=== PATIENT | female | born 1995 | race Caucasian/White ===

== ENCOUNTER 2020-05-31 20:03 | Inpatient (IN) ==
[2020-05-31] MEDS ORDERED: ONDANSETRON 4 MG/2 ML VIAL IV PRN (20:46)
[2020-05-31] MEDS ORDERED: LACTATED RINGERS 250 ML IV ONE (20:46)
[2020-05-31] MEDS ORDERED: LACTATED RINGERS 500 ML IV PRN (20:46)
[2020-05-31] MEDS ORDERED: MEPERIDINE 50 MG/1 ML VIAL IV PRN (20:46)
[2020-05-31 21:03] LABS: Basophils # 0.1 10*3/uL (0.0-0.2); Basophils % 0.3 % (0.0-0.8); Eosinophils # 0.2 10*3/uL (0.0-0.87); Eosinophils % 0.8 % (0.00-10.9); Hematocrit 36.7 VOL% (35.7-47.0); Immature Granulocytes % 0.6 %; Immature Granulocytes Absolute 0.12 #; Lymphocytes # 3.3 10*3/uL (1.4-4.0); Lymphocytes % 17.8 % (21.3-54.2); Mean Corpuscular HGB Conc 32.7 GM/DL (32-36); Mean Corpuscular Volume 91.5 FL (87-102); Mean Platelet Volume 10.6 FL (9.6-12.0); Monocytes % 5.7 % (1.7-12.7); Neutrophils % 74.8 % (38.7-73.9); Platelet Count 298 T/CUMM (130-400); Red Blood Count 4.01 MC/CUMM (3.8-5.5); Red Cell Distribution Width 14.7 % (9.3-17.3); White Blood Count 18.5 T/CUMM (4-12)
[2020-05-31 21:17] LABS: Bacteria,Urine Occasional /HPF (Few); Bilirubin,Urine Negative (Negative); Blood, Urine Negative (Negative); Calcium Oxalate Crystals,Urine Occasional /HPF (Few); Glucose,Urine (UA) Negative (Negative); Ketones,Urine Negative (Negative); Mucus,Urine Moderate /LPF (Occasional); Nitrite,Urine Negative (Negative); Protein,Urine 100 MG/DL; RBC,Urine 2 /HPF (0-4); Squamous Epithelial Cell,Urine Occasional /HPF (0-10); Urine Appearance CLEAR (Clear); Urine Color Yellow (Yellow); Urine Specific Gravity 1.029 (1.001-1.035); Urine Urobilinogen < 2.0 EU/DL (0.2-1.0); WBC,Urine 1 /HPF (0-6)
[2020-06-01] MEDS ORDERED: TERBUTALINE 1 MG/1 ML VIAL ONE (06:44)
[2020-06-01] MEDS ORDERED: TERBUTALINE 1 MG/1 ML VIAL SUBCUT ONE ×2 (06:55→08:08)
[2020-06-01] MEDS ORDERED: FAMOTIDINE 20 MG/2 ML VIAL IV ONE ×2 (07:18→07:20)
[2020-06-01] MEDS ORDERED: CITRIC ACID/SODIUM CITRATE 30 ML UDCUP PO ONE (07:19)
[2020-06-01] MEDS ORDERED: CITRIC ACID/SODIUM CITRATE 30 ML UDCUP ONE (07:20)
[2020-06-01] MEDS ORDERED: ceFAZolin 3,000 MG in SYRINGE 1 EACH IV ONE (08:00)
[2020-06-01] MEDS ORDERED: miSOPROStoL 200 MCG TABLET ONE (08:07)
[2020-06-01] MEDS ORDERED: OXYTOCIN/LR 20 UNIT/1,000 ML BAG IV ONE ×2 (08:07→09:43)
[2020-06-01] MEDS ORDERED: SODIUM CHLORIDE 0.9% 0 ML IV ONE (08:07)
[2020-06-01] MEDS ORDERED: CARBOPROST TROMETHAMINE 250 MCG/ML AMP IM ONE (08:07)
[2020-06-01] MEDS ORDERED: METHYLERGONOVINE 0.2 MG/1 ML AMP ONE (08:07)
[2020-06-01] MEDS ORDERED: TRANEXAMIC ACID 1,000 MG/10 ML VIAL ONE (08:07)
[2020-06-01] MEDS ORDERED: BUPIVACAINE SPINAL 0.75% 2 ML AMP SPINAL ONE (08:38)
[2020-06-01] MEDS ORDERED: MORPHINE 10 MG/10 ML VIAL ONE (08:38)
[2020-06-01] MEDS ORDERED: ONDANSETRON 4 MG/2 ML VIAL ONE (09:10)
[2020-06-01] MEDS ORDERED: diphenhydrAMINE 50 MG/1 ML VIAL ONE (09:14)
[2020-06-01] MEDS ORDERED: miSOPROStoL 200 MCG TABLET VAG ONE (09:17)
[2020-06-01] MEDS ORDERED: ROPIVACAINE 0.5% 30 ML VIAL ONE ×2 (09:20)
[2020-06-01] MEDS ORDERED: DEXAMETHASONE 4 MG/1 ML VIAL ONE ×2 (09:20)
[2020-06-01 09:25] LABS: Cord Arterial Blood HCO3 18.1 MMOL/L
[2020-06-01 09:28] LABS: Cord Venous Blood HCO3 19.6 MMOL/L; Cord Venous Blood PCO2 55.9 MMHG
[2020-06-01 09:29] LABS: Cord Venous Blood PO2 13.5
[2020-06-01 09:37] LABS: Glucose,Urine (UA) Negative (Negative); Ketones,Urine Negative (Negative); Nitrite,Urine Negative (Negative); Protein,Urine 1+ MG/DL; Urine Appearance Clear (Clear); Urine Color Amber (Yellow); Urine Specific Gravity 1.025 (1.001-1.035)
[2020-06-01 09:38] LABS: Bacteria,Urine Rare /HPF (Few); Bilirubin,Urine Negative (Negative); Blood, Urine Negative (Negative); Mucus,Urine Trace /LPF (Occasional); RBC,Urine Rare /HPF (0-4); Urine Urobilinogen < 2.0 EU/DL (0.2-1.0); WBC,Urine Rare /HPF (0-6)
[2020-06-01] MEDS ORDERED: LANOLIN 50% CREAM 0.3 OZ TUBE TOP PRN (09:43)
[2020-06-01] MEDS ORDERED: ONDANSETRON 4 MG/2 ML VIAL IV PRN (09:43)
[2020-06-01] MEDS ORDERED: BENZOCAINE 20%/MENTHOL 0.5% SPRAY 56 GM CAN TOP PRN (09:43)
[2020-06-01] MEDS ORDERED: MEASLES/MUMPS/RUBELLA VACCINE 0.5 ML VIAL SUBCUT ONE (09:43)
[2020-06-01] MEDS ORDERED: WITCH HAZEL PADS 100/JAR TOP PRN (09:43)
[2020-06-01] MEDS ORDERED: RHO(D) IMMUNE GLOBULIN 300 MCG SYRINGE IM ONE (09:43)
[2020-06-01] MEDS ORDERED: DIPH/TET/ACEL PERT BOOSTER VACCINE 0.5 ML VIAL IM ONE (09:43)
[2020-06-01] MEDS ORDERED: oxyCODONE/ACETAMINOPHEN 5-325 MG TABLET PO PRN ×2 (09:43)
[2020-06-01] MEDS ORDERED: BISACODYL 10 MG SUPP RECTAL PRN (09:43)
[2020-06-01] MEDS ORDERED: ACETAMINOPHEN 325 MG TABLET PO PRN (09:43)
[2020-06-01] MEDS ORDERED: IBUPROFEN 800 MG TABLET PO PRN (09:43)
[2020-06-01] MEDS ORDERED: HYDROCORTISONE 2.5% RECTAL CREAM 30 GM TUBE TOP PRN (09:43)
[2020-06-01] MEDS: LABETALOL 100 MG TABLET PO SCH ×2 (10:14→22:08)
[2020-06-01] MEDS: diphenhydrAMINE 50 MG/1 ML VIAL IV PRN ×2 (15:02→22:08)
[2020-06-01] MEDS: ceFAZolin 2,000 MG in PREMIX 1 EACH IV SCH (16:47)
[2020-06-01] MEDS: DOCUSATE SODIUM 100 MG CAPSULE PO SCH (22:02)
[2020-06-01] MEDS ORDERED: LACTATED RINGERS 1,000 ML IV SCH (23:00)
[2020-06-02] MEDS: ceFAZolin 2,000 MG in PREMIX 1 EACH IV SCH (00:37)
[2020-06-02 05:55] LABS: Basophils % 0.1 % (0.0-0.8); Eosinophils % 0.1 % (0.00-10.9); Hematocrit 31.5 VOL% (35.7-47.0); Hemoglobin 10.2 GM/DL (12.0-16.0); Immature Granulocytes % 0.5 %; Immature Granulocytes Absolute 0.08 #; Lymphocytes # 2.8 10*3/uL (1.4-4.0); Lymphocytes % 17.2 % (21.3-54.2); Mean Corpuscular HGB Conc 32.4 GM/DL (32-36); Mean Corpuscular Volume 91.8 FL (87-102); Mean Platelet Volume 11.1 FL (9.6-12.0); Monocytes % 6.9 % (1.7-12.7); Neutrophils % 75.2 % (38.7-73.9); Platelet Count 241 T/CUMM (130-400); Red Blood Count 3.43 MC/CUMM (3.8-5.5); White Blood Count 16.2 T/CUMM (4-12)
[2020-06-02 07:18] VITALS: BP 133/70
[2020-06-02] MEDS: DOCUSATE SODIUM 100 MG CAPSULE PO SCH (11:18)
[2020-06-02] MEDS: LABETALOL 100 MG TABLET PO SCH (11:18)
== END 2020-06-02 14:05 | disposition home or self-care (01) | DRG 788 ==
LOC: N.LDOUT 20:03 → N.LD 20:08 → N.OB 06-01 12:44
PROVIDERS: ADMIT Specialist; ATTEND Specialist
PROC: LDCSECT (ICD-10-PCS; 2020-06-01 08:00)

== ENCOUNTER 2022-05-29 05:30 | Inpatient (IN) ==
[2022-05-29] MEDS ORDERED: miSOPROStoL 200 MCG TABLET RECTAL PRN (05:42)
[2022-05-29] MEDS ORDERED: CITRIC ACID/SODIUM CITRATE 30 ML UDCUP PO ONE (05:42)
[2022-05-29] MEDS ORDERED: FAMOTIDINE 20 MG/2 ML VIAL IV ONE (05:42)
[2022-05-29] MEDS ORDERED: OXYTOCIN/LR 20 UNIT/1,000 ML BAG IV ONE ×3 (05:42→11:26)
[2022-05-29] MEDS ORDERED: ceFAZolin 2,000 MG/50 ML DUPLEX IV ONE (05:42)
[2022-05-29] MEDS ORDERED: TRANEXAMIC ACID 1,000 MG in SODIUM CHLORIDE 0.9% 100 ML IV PRN (05:42)
[2022-05-29] MEDS ORDERED: CARBOPROST TROMETHAMINE 250 MCG/ML AMP IM PRN (05:42)
[2022-05-29] MEDS ORDERED: METHYLERGONOVINE 0.2 MG/1 ML AMP IM PRN (05:42)
[2022-05-29] MEDS: LACTATED RINGERS 1,000 ML IV SCH ×2 (06:01→07:01)
[2022-05-29 06:02] LABS: Basophils # 0.1 10*3/uL (0.0-0.2); Basophils % 0.3 % (0.0-0.8); Eosinophils # 0.2 10*3/uL (0.0-0.87); Eosinophils % 0.9 % (0.00-10.9); Hematocrit 40.1 VOL% (35.7-47.0); Hemoglobin 12.1 GM/DL (12.0-16.0); Immature Granulocytes % 0.8 %; Immature Granulocytes Absolute 0.16 #; Lymphocytes # 4.8 10*3/uL (1.4-4.0); Lymphocytes % 24.5 % (21.3-54.2); Mean Corpuscular HGB Conc 30.2 GM/DL (32-36); Mean Platelet Volume 10.5 FL (9.6-12.0); Monocytes # 1.3 10*3/uL (0.11-0.8); Monocytes % 6.5 % (1.7-12.7); Platelet Count 376 T/CUMM (130-400); Red Blood Count 4.31 MC/CUMM (3.8-5.5); White Blood Count 19.6 T/CUMM (4-12)
[2022-05-29 06:19] LABS: Alanine Aminotransferase 17 U/L (13-56); Albumin 2.6 G/DL (3.4-5.0); Alkaline Phosphatase 226 U/L (45-117); Aspartate Amino Transferase 14 U/L (0-37); Bilirubin,Total < 0.39 MG/DL (0.20-1.00); Blood Urea Nitrogen 9 MG/DL (7-18); Calcium 8.8 MG/DL (8.5-10.1); Carbon Dioxide 26 MMOL/L (21-32); Chloride 107 MMOL/L (98-107); Glucose 101 MG/DL (74-106); Osmolality,Calculated 271.8 MOS/KG (273-304); Potassium 4.1 MMOL/L (3.5-5.1); Sodium 137 MMOL/L (136-145); Total Protein 6.8 G/DL (6.4-8.2)
[2022-05-29 06:21] LABS: Eosinophils 1 % (0-10); Lymphocytes 30 % (20-55); Platelet Estimate Adequate; Total Cells Counted 100
[2022-05-29] MEDS ORDERED: ONDANSETRON 4 MG/2 ML VIAL ONE (06:57)
[2022-05-29] MEDS ORDERED: PHENYLEPHRINE 1 MG/10 ML SYRINGE IV ONE ×2 (06:57→07:39)
[2022-05-29] MEDS ORDERED: KETOROLAC 30 MG/1 ML VIAL ONE (06:57)
[2022-05-29] MEDS ORDERED: ACETAMINOPHEN INJ 1,000 MG/100 ML VIAL IV ONE (06:57)
[2022-05-29] MEDS ORDERED: buprenorphine HCL 0.3 MG/ML VIAL ONE (06:57)
[2022-05-29] MEDS ORDERED: DEXAMETHASONE 4 MG/1 ML VIAL ONE (07:00)
[2022-05-29] MEDS ORDERED: TRANEXAMIC ACID 1,000 MG/10 ML VIAL ONE (07:03)
[2022-05-29] MEDS ORDERED: miSOPROStoL 200 MCG TABLET ONE (07:03)
[2022-05-29] MEDS ORDERED: CARBOPROST TROMETHAMINE 250 MCG/ML AMP IM ONE (07:04)
[2022-05-29] MEDS ORDERED: METHYLERGONOVINE 0.2 MG/1 ML AMP ONE (07:04)
[2022-05-29] MEDS ORDERED: SODIUM CHLORIDE 0.9% 0 ML IV ONE (07:04)
[2022-05-29] MEDS ORDERED: LACTATED RINGERS 1,000 ML IV ONE (07:42)
[2022-05-29 08:02] LABS: Cord Arterial Blood HCO3 20.7 MMOL/L
[2022-05-29 08:03] LABS: Bilirubin,Urine Negative (Negative); Blood, Urine Negative (Negative); Glucose,Urine (UA) Negative (Negative); Ketones,Urine Negative (Negative); Mucus,Urine Occasional /LPF (Occasional); Nitrite,Urine Negative (Negative); Protein,Urine Negative (Negative); RBC,Urine <1 /HPF (0-4); Urine Appearance Clear (Clear); Urine Color Yellow (Yellow); Urine Urobilinogen 0.2 eU/dL (<2.0)
[2022-05-29 08:04] LABS: Cord Venous Blood HCO3 22.2 MMOL/L; Cord Venous Blood PCO2 50.5 MMHG; Cord Venous Blood PO2 24.8
[2022-05-29] MEDS ORDERED: oxyCODONE/ACETAMINOPHEN 5-325 MG TABLET PO PRN (11:26)
[2022-05-29] MEDS ORDERED: HYDROCORTISONE 2.5% RECTAL CREAM 30 GM TUBE TOP PRN (11:26)
[2022-05-29] MEDS ORDERED: ONDANSETRON 4 MG/2 ML VIAL IV PRN (11:26)
[2022-05-29] MEDS ORDERED: LANOLIN 50% CREAM 0.3 OZ TUBE TOP PRN (11:26)
[2022-05-29] MEDS ORDERED: BENZOCAINE 20%/MENTHOL 0.5% SPRAY 56 GM CAN TOP PRN (11:26)
[2022-05-29] MEDS ORDERED: DIPH/TET/ACEL PERT BOOSTER VACCINE 0.5 ML VIAL IM ONE (11:26)
[2022-05-29] MEDS ORDERED: MEASLES/MUMPS/RUBELLA VACCINE 0.5 ML VIAL SUBCUT ONE (11:26)
[2022-05-29] MEDS ORDERED: BISACODYL 10 MG SUPP RECTAL PRN (11:26)
[2022-05-29] MEDS ORDERED: ACETAMINOPHEN 325 MG TABLET PO PRN (11:26)
[2022-05-29] MEDS ORDERED: WITCH HAZEL PADS 100/JAR TOP PRN (11:26)
[2022-05-29] MEDS ORDERED: RHO(D) IMMUNE GLOBULIN 300 MCG SYRINGE IM ONE (11:26)
[2022-05-29] MEDS ORDERED: ACETAMINOPHEN 500 MG TABLET PO PRN (14:00)
[2022-05-29] MEDS: KETOROLAC 30 MG/1 ML VIAL IV SCH (14:21)
[2022-05-29] MEDS: oxyCODONE/ACETAMINOPHEN 5-325 MG TABLET PO PRN (19:34)
[2022-05-29] MEDS: DOCUSATE SODIUM 100 MG CAPSULE PO SCH (21:54)
[2022-05-29] MEDS: IBUPROFEN 800 MG TABLET PO PRN (23:45)
[2022-05-30] MEDS: KETOROLAC 30 MG/1 ML VIAL IV SCH (01:08)
[2022-05-30 04:55] LABS: Basophils % 0.2 % (0.0-0.8); Eosinophils % 0.2 % (0.00-10.9); Hemoglobin 9.3 GM/DL (12.0-16.0); Immature Granulocytes % 0.8 %; Immature Granulocytes Absolute 0.16 #; Lymphocytes # 5.5 10*3/uL (1.4-4.0); Lymphocytes % 28.7 % (21.3-54.2); Mean Corpuscular Volume 91.7 FL (87-102); Mean Platelet Volume 10.9 FL (9.6-12.0); Monocytes # 1.3 10*3/uL (0.11-0.8); Monocytes % 6.8 % (1.7-12.7); Neutrophils % 63.3 % (38.7-73.9); Platelet Count 292 T/CUMM (130-400); Red Blood Count 3.27 MC/CUMM (3.8-5.5); White Blood Count 19.1 T/CUMM (4-12)
[2022-05-30] MEDS: oxyCODONE/ACETAMINOPHEN 5-325 MG TABLET PO PRN ×2 (05:05→12:19)
[2022-05-30 05:17] LABS: Hypochromia Slight; Lymphocytes 26 % (20-55); Microcytosis Slight; Platelet Estimate Adequate; Total Cells Counted 100
[2022-05-30] MEDS ORDERED: SIMETHICONE CHEW 80 MG TABLET PO PRN (08:36)
[2022-05-30] MEDS ORDERED: MAGNESIUM HYDROXIDE SUSP 30 ML UDCUP PO PRN (08:36)
[2022-05-30] MEDS: DOCUSATE SODIUM 100 MG CAPSULE PO SCH ×3 (09:29→21:48)
[2022-05-30] MEDS: IBUPROFEN 800 MG TABLET PO PRN (20:18)
[2022-05-31 08:51] VITALS: BP 138/74
[2022-05-31] MEDS: DOCUSATE SODIUM 100 MG CAPSULE PO SCH (09:13)
== END 2022-05-31 13:30 | disposition home or self-care (01) | DRG 788 ==
LOC: N.LD 05:30 → N.OB 11:41
PROVIDERS: ADMIT Specialist; ATTEND Specialist
PROC: LDCSECT (ICD-10-PCS; 2022-05-29 07:30)